=== PATIENT | female | born 1985 | race Two or more races ===

== ENCOUNTER 2022-07-11 08:36 | Emergency (ER) | payer OTHER ==
[~2022-07-11] VITALS: Ht 160 cm; Wt 63.5 kg
== END 2022-07-11 12:06 | disposition home or self-care (01) ==
LOC: ER 08:36
DX: S92.334A Nondisplaced fracture of third metatarsal bone, right foot, initial encounter for closed fracture (principal); S92.344A Nondisplaced fracture of fourth metatarsal bone, right foot, initial encounter for closed fracture; X58.XXXA Exposure to other specified factors, initial encounter; Y93.89 Activity, other specified; Y92.89 Other specified places as the place of occurrence of the external cause